=== PATIENT | female | born 1970 | race Hispanic/Latino ===

== ENCOUNTER 2024-03-28 20:01 | Inpatient (IN) | payer SELFPAY ==
[~2024-03-28] VITALS: Ht 144.8 cm; Wt 79.8 kg
[2024-03-28] MEDS: SODIUM CHLORIDE 0.9% 1000ML 1,000 ML IV SCH (22:45)
[2024-03-28] MEDS: SODIUM CHLORIDE 0.9% 1000ML 1,000 ML IV STA (22:56)
[2024-03-28] MEDS ORDERED: MELATONIN 5 MG TABLET PO PRN (23:00)
[2024-03-28] MEDS ORDERED: ACETAMINOPHEN 325 MG TAB PO PRN (23:00)
[2024-03-28] MEDS ORDERED: FAMOTIDINE 20 MG TAB PO PRN (23:00)
[2024-03-28] MEDS ORDERED: LACTULOSE SYRUP 20 GM/30 ML UDC PO PRN (23:00)
[2024-03-28] MEDS ORDERED: HYDRALAZINE HCL 20 MG/ML VIAL IV PRN (23:00)
[2024-03-29] VITALS (10 sets, daily range): BP systolic 122–142; BP diastolic 63–71; PULSE 62–79; RESP 17–20; TEMP 97.7–98.5; O2SAT 100
[2024-03-29] MEDS: ONDANSETRON HCL INJ 2MG/ML 2ML 2 MG/ML VIAL IV PRN (00:49)
[2024-03-29] MEDS: LACTULOSE SYRUP 20 GM/30 ML UDC PO SCH (01:18)
[2024-03-29] MEDS ORDERED: OMEPRAZOLE40 MG PO (04:57)
[2024-03-29] MEDS ORDERED: FOLIC ACID0.4 MG PO (04:58)
[2024-03-29] MEDS ORDERED: PROPRANOLOL HCL10 MG PO (04:59)
[2024-03-29] MEDS ORDERED: LASIX10 MG/ML PO (05:01)
[2024-03-29] MEDS ORDERED: XIFAXAN550 MG PO (05:03)
[2024-03-29] MEDS ORDERED: LASIX40 MG PO (05:03)
[2024-03-29] MEDS ORDERED: SPIRONOLACTONE25 MG PO (05:04)
[2024-03-29] MEDS ORDERED: POLYETHYLENE GL17 GM PO (05:10)
[2024-03-29] MEDS ORDERED: SPIRONOLACTONE50 MG PO (05:10)
[2024-03-29 05:39] LABS: BASOPHILS # (AUTO) 0.1 (0.0-0.1); BASOPHILS % 1.2 % (0.0-1.0); EOSINOPHILS # (AUTO) 0.2 (0.0-0.4); EOSINOPHILS % 3.6 % (0.0-6.0); HEMATOCRIT 34.2 % (34.2-44.1); HEMOGLOBIN 11.2 g/dL (12.0-16.0); LYMPHOCYTES # (AUTO) 1.6 (1.0-3.2); LYMPHOCYTES % 32.1 % (18.0-39.1); MEAN CORPUSCULAR HEMOGLOBIN 30.1 pg (28-32); MEAN CORPUSCULAR HGB CONC 32.7 g/dL (31-35); MEAN CORPUSCULAR VOLUME 91.9 fL (81-99); MONOCYTES # (AUTO) 0.8 (0.2-0.8); MONOCYTES % 15.2 % (4.4-11.3); NEUTROPHILS # (AUTO) 2.4 (2.1-6.9); NEUTROPHILS % 47.7 % (38.7-80.0); RED BLOOD COUNT 3.72 x10e6/uL (3.6-5.1); RED CELL DISTRIBUTION WIDTH 14.9 % (11.7-14.4); WHITE BLOOD COUNT 4.95 x10e3/uL (4.8-10.8)
[2024-03-29 05:59] LABS: ANION GAP 18.1 mmol/L (8-16); CALCIUM 9.2 mg/dL (8.4-10.2); CREATININE, SERUM 1.72 mg/dL (0.57-1.11); POTASSIUM 4.1 mmol/L (3.5-5.1)
[2024-03-29 06:03] LABS: PLATELET COUNT 64 x10e3/uL (140-360)
[2024-03-29] MEDS: PROPRANOLOL HCL 10 MG TAB PO SCH (09:18)
[2024-03-29] MEDS: RIFAXIMIN 550 MG TABLET PO SCH (09:18)
[2024-03-29] MEDS: PANTOPRAZOLE SOD 40 MG TABEC PO SCH (09:18)
[2024-03-29] MEDS: FOLIC ACID 1 MG TAB PO SCH (09:18)
[2024-03-29 10:08] LABS: BILIRUBIN,URINE NEGATIVE (NEGATIVE); CLARITY,URINE CLEAR (CLEAR); COLOR,URINE YELLOW (YELLOW); GLUCOSE, URINE NEGATIVE (NEGATIVE); KETONES,URINE NEGATIVE (NEGATIVE); LEUKOCYTE ESTERASE ,URINE TRACE (NEGATIVE); NITRITE,URINE NEGATIVE (NEGATIVE); PH,URINE 6 (5 - 7); PROTEIN,URINE DIPSTICK NEGATIVE (NEGATIVE); URINE UROBILINOGEN 0.2 mg/dL (0.2 - 1)
[2024-03-29 10:26] LABS: BACTERIA,URINE MODERATE /HPF; EPITHELIAL CELLS,URINE MODERATE /LPF
[2024-03-29] MEDS ORDERED: MAG-OXIDE400 MG PO (12:21)
[2024-03-29] MEDS ORDERED: LEVOTHYROXINE50 MCG PO (12:21)
[2024-03-29] MEDS: LEVOTHYROXINE SODIUM 100 MCG TAB PO ONE (13:17)
[2024-03-30 03:42] VITALS: BP 121/63; PULSE 66; RESP 18; TEMP 98; O2SAT 100
[2024-03-30 05:42] LABS: BASOPHILS # (AUTO) 0.1 (0.0-0.1); BASOPHILS % 1.5 % (0.0-1.0); EOSINOPHILS # (AUTO) 0.2 (0.0-0.4); HEMATOCRIT 32.3 % (34.2-44.1); HEMOGLOBIN 10.4 g/dL (12.0-16.0); LYMPHOCYTES # (AUTO) 1.2 (1.0-3.2); LYMPHOCYTES % 30.3 % (18.0-39.1); MEAN CORPUSCULAR HEMOGLOBIN 30.4 pg (28-32); MEAN CORPUSCULAR HGB CONC 32.2 g/dL (31-35); MEAN CORPUSCULAR VOLUME 94.4 fL (81-99); MONOCYTES # (AUTO) 0.7 (0.2-0.8); MONOCYTES % 18.1 % (4.4-11.3); NEUTROPHILS # (AUTO) 1.8 (2.1-6.9); NEUTROPHILS % 45.6 % (38.7-80.0); PLATELET COUNT 56 x10e3/uL (140-360); RED BLOOD COUNT 3.42 x10e6/uL (3.6-5.1); RED CELL DISTRIBUTION WIDTH 14.6 % (11.7-14.4); WHITE BLOOD COUNT 4.03 x10e3/uL (4.8-10.8)
[2024-03-30 06:17] LABS: ALBUMIN 3.1 g/dL (3.5-5.0); ALBUMIN/GLOBULIN RATIO 0.8 (0.8-2.0); ANION GAP 11.6 mmol/L (8-16); BILIRUBIN,TOTAL 2.1 mg/dL (0.2-1.2); CALCIUM 8.7 mg/dL (8.4-10.2); CREATININE, SERUM 1.64 mg/dL (0.57-1.11); POTASSIUM 4.6 mmol/L (3.5-5.1)
[2024-03-30 08:20] VITALS: BP 133/70; PULSE 64; RESP 12; TEMP 98.3; O2SAT 100
[2024-03-30 09:00] VITALS: BP 133/70; PULSE 64; RESP 12; TEMP 98.3; O2SAT 100
[2024-03-30] MEDS ORDERED: LEVOTHYROXINE75 MCG PO (10:43)
[2024-03-30] MEDS ORDERED: LACTULOSE20 GM/30 M PO (10:43)
[2024-03-30 11:42] VITALS: BP 147/79; PULSE 65; RESP 18; TEMP 97.8; O2SAT 100
== END 2024-03-30 11:52 | disposition home or self-care (01) | DRG 442 ==
LOC: FSED 20:23 → ERHOLD 22:47 → MED/SURG 03-29 02:34
PROVIDERS: ADMIT Family Medicine Adult Medicine; ATTEND Family Medicine Adult Medicine
DX: K76.82 Hepatic encephalopathy (principal); K76.6 Portal hypertension; N17.9 Acute kidney failure, unspecified; K74.60 Unspecified cirrhosis of liver; I12.9 Hypertensive chronic kidney disease with stage 1 through stage 4 chronic kidney disease, or unspecified chronic kidney disease; E03.9 Hypothyroidism, unspecified; N18.9 Chronic kidney disease, unspecified; D64.9 Anemia, unspecified; N20.0 Calculus of kidney; R26.81 Unsteadiness on feet; Z11.52 Encounter for screening for COVID-19
CPT/HCPCS: 36415; 70450; 71250; 74176; 80048; 80053; 81001; 81003; 82140; 82553; 84443; 84484; 85025; 85610; 93005; 99284; J2405; J7030; U0002